=== PATIENT | female | born 1980 | race Two or more races ===

== ENCOUNTER 2024-07-15 12:14 | Emergency (ER) | payer OTHER ==
[~2024-07-15] VITALS: Ht 152.4 cm; Wt 61.2 kg
[2024-07-15] MEDS ORDERED: GABA-532 PO (17:50)
[2024-07-15] MEDS ORDERED: IBUP-1953 PO (17:50)
[2024-07-15 17:59] VITALS: BP 110/75; TEMP 98.2; O2SAT 98
== END 2024-07-15 18:00 | disposition home or self-care (01) ==
LOC: ER 12:14
DX: M54.2 Cervicalgia (principal); M54.50 Low back pain, unspecified
CPT/HCPCS: 72125-TC